=== PATIENT | male | born 1975 | race Caucasian/White ===

== ENCOUNTER 2024-11-09 19:56 | Emergency (ER) | payer OTHER, MEDICAID ==
[~2024-11-09] VITALS: Ht 182.9 cm; Wt 122.0 kg
[2024-11-09 20:10] VITALS: O2SAT 97
[2024-11-09 20:13] VITALS: BP 176/92; PULSE 77; RESP 18; TEMP 98; O2SAT 99
== END 2024-11-09 22:12 | disposition left against medical advice (07) ==
LOC: ER 19:56
DX: R07.9 Chest pain, unspecified (principal); Z53.21 Procedure and treatment not carried out due to patient leaving prior to being seen by health care provider
CPT/HCPCS: 71045; 93005